=== PATIENT | female | born 1970 | race Caucasian/White ===

== ENCOUNTER → 2016-08-20 | Outpatient (CLI) | payer OTHER | LOC: FIMAGING 08:40 | PROVIDERS: ATTEND Family Medicine | DX: Z12.31 Encounter for screening mammogram for malignant neoplasm of breast (principal) | CPT/HCPCS: G0202 ==

== ENCOUNTER → 2017-10-07 | Outpatient (CLI) | payer OTHER | LOC: FIMAGING 08:27 | PROVIDERS: ATTEND Family Medicine | DX: Z12.31 Encounter for screening mammogram for malignant neoplasm of breast (principal); Z80.3 Family history of malignant neoplasm of breast ==

== ENCOUNTER → 2017-10-19 | Outpatient (CLI) | payer OTHER | LOC: FIMAGING 14:21 | PROVIDERS: ATTEND Family Medicine | DX: R91.8 Other nonspecific abnormal finding of lung field (principal) ==

== ENCOUNTER 2018-06-22 12:49 | Emergency (ER) | payer OTHER ==
--- NOTE | 2018-06-22 14:26 | EDPHY ---
General Time Seen by Provider: 06/22/18 13:40 Narrative: CLINICAL IMPRESSION: Right knee strain ASSESSMENT/PLAN: 48-year-old female presents to the emergency department with right knee pain after twisting the knee at home today. Patient is unable to ambulate. She has no laxity with anterior drawer testing. Pain to the lateral aspect of the knee and joint effusion appreciated. X-rays negative for acute bony abnormality in fracture. Distal neurovascular exam intact. No lower leg ankle or foot pain. Rice treatment discussed, orthopedic referral given, warning signs return to ED sooner discussed discharge. DIFFERENTIAL DX: Differential includes but not limited to acute fracture, strain/sprain, joint dislocation, soft tissue contusion ED COURSE: X-rays read by myself with no obvious dislocation fracture or deformity. CHIEF COMPLAINT: Right knee pain HPI: 48-year-old female presents to the emergency department with right knee pain after attempting to hurry to her bed to remove her cat that appeared it was vomiting. Patient reports she twisted her knee in the process. She did not heal or a pop or pull. No prior knee injury or surgery. No lower leg ankle or foot pain. She reports she is unable to bear weight because of the knee pain. She went to urgent care and was given a splint and was directed to the emergency department. PAST MEDICAL HISTORY: No significant past medical or orthopedic surgery REVIEW OF SYSTEMS: All other systems negative Constitutional: No fever, no chills Musculoskeletal: No deformity, + joint pain Skin: No rashes, color change or open wounds. Neurological: No sensory loss or weakness. PHYSICAL EXAM: General Appearance: Alert, oriented, appropriate for age, cooperative, sitting in a wheelchair, NAD, well hydrated, non-toxic appearing, hypertensive, no hypoxia. Neurological: Alert and oriented x 3, normal sensation extremities Skin: Warm, dry, no rashes, no nodules on palpation. Musculoskeletal: Right knee joint effusion appreciated. Reproducible tenderness to the proximal fibular head, unable to perform Sudarshan testing due to patient's position and reluctance to lay down. Negative anterior drawer testing. No lower leg ankle or foot pain. Distal neurovascular exam intact. MEDICAL DECISION MAKING: Patient was seen independently. Secondary supervising physician at time of evaluation was Dr. Villagran. Diagnosis: Right knee strain. New, requires workup Summary: See assessment and plan for summary of ED visit Independent visualization of images, tracing, or specimens yes. Patient Progress: Stable for discharge. - Diagnostics Imaging Results: Imaging Impressions Knee X-Ray 06/22/18 13:09 Impression: Mild depression of the lateral tibial plateau, potentially related to acute or prior trauma. Correlation with pain in this region is recommended. If pain is present, MRI examination would be of benefit in further evaluation. - History Smoking Status: Never smoked - Objective Vital Signs: Initial Vital Signs Temperature (C) 37.3 C 06/22/18 13:07 Heart Rate 100 06/22/18 13:07 Respiratory Rate 16 06/22/18 13:07 Blood Pressure 152/112 H 06/22/18 13:07 O2 Sat (%) 97 06/22/18 13:07 O2 Delivery Mode Room Air Allergies/Adverse Reactions: Penicillins Allergy (Verified 06/22/18 13:07) Sulfa (Sulfonamide Antibiotics) Allergy (Verified 06/22/18 13:07) Home Medications: Medication Instructions Recorded Bcp 06/22/18 Hydrocodone/APAP 5/325 [[place] 1 - 2 tab PO Q4H PRN #10 tab 06/22/18 5325 (*)] Departure - Departure Disposition: Home, Routine, Self-Care Clinical Impression: Strain of knee Qualifiers: Encounter type: initial encounter Laterality: right Qualified Code(s): S86.911A - Strain of unspecified muscle(s) and tendon(s) at lower leg level, right leg, initial encounter Condition: Good Instructions: Knee Pain (ED) Additional Instructions: DISCHARGE INSTRUCTIONS FROM YOUR DOCTOR Thank you for visiting our emergency department today. You were treated by a physician clinical trial assistant today and your case was reviewed with our ED Attending physician. Please keep in mind that discharge from the emergency department does not mean that there is nothing wrong - it simply means that we have not identified an emergency condition that requires further evaluation or treatment in the hospital. You should always plan to follow up with primary care for re- evaluation of your condition in the next 2-3 days. If you have been referred to a specialist, please call as soon as possible (today or tomorrow) to schedule your follow up appointment at the appropriate time. [X-RAYS OF THE KNEE SHOW NO OBVIOUS FRACTURE OR DISLOCATION. REST AND ELEVATE THE AFFECTED EXTREMITY MUCH POSSIBLE. ICE THE AFFECTED AREAS 20 MIN ON, 20 MIN OFF FOR THE NEXT SEVERAL DAYS. PLEASE USE TYLENOL OR IBUPROFEN OVER THE COUNTER IN APPROPRIATE DOSES OUTLINED ON YOUR DISCHARGE PAPERS. TAKE IBUPROFEN WITH FOOD AND A LARGE GLASS OF WATER. PLEASE FOLLOW-UP WITH ORTHOPEDICS IF PAIN PERSISTS OR WORSENS. RETURN TO ED FOR ANY OTHER CONCERNS. People present with illnesses and injuries in different ways, and it is always possible that we have missed something. You may always return for re-evaluation if symptoms worsen or if they are not improving or if you develop new/different symptoms. Again, thank you for choosing our emergency department. We hope that you feel better. Referrals: Ana Alvarado MD [Primary Care Provider] - As per Instructions Andreia Terrell MD [Medical Doctor] - 2-3 days, if not improved Prescriptions: Hydrocodone/APAP 5/325 [[place] 5/325 (*)] 1 - 2 tab PO Q4H PRN #10 tab PRN Reason: Pain, Moderate
[2018-06-22 14:51] VITALS: BP 127/81
== END 2018-06-22 14:51 | disposition home or self-care (01) ==
DX: S86.911A Strain of unspecified muscle(s) and tendon(s) at lower leg level, right leg, initial encounter (principal); W18.40XA Slipping, tripping and stumbling without falling, unspecified, initial encounter; Y92.003 Bedroom of unspecified non-institutional (private) residence as the place of occurrence of the external cause